=== PATIENT | male | born 1985 ===

== ENCOUNTER 2021-02-18 08:00 | Outpatient (RCR) | payer OTHER, SELFPAY ==
[2021-02-18 09:05] LABS: Abs Immature Grans 0.02 10^3/uL (0.0-0.06); Absolute Basophil Count 0.04 10^3/uL (0.0-0.2); Absolute Eosinophil Count 0.27 10^3/uL (0.0-0.7); Absolute Lymphocyte Count 1.11 10^3/uL (1.2-3.4); Absolute Monocyte Count 1.34 10^3/uL (0.1-0.8); Absolute Neutrophil Count 3.56 10^3/uL (1.2-6.7); Basophils % 0.6; Eosinophils % 4.3; HCT 26.6 % (40.0-50.0); HGB 8.3 g/dL (13.5-17.5); Immature Grans % 0.3; Lymphocytes % 17.5; MCH 26.9 pg (27.0-33.0); MCHC 31.2 % (32.0-36.0); MCV 86.1 fL (80-95); MPV 10.1 fL (8.0-11.0); Monocytes % 21.1; Neutrophils % 56.2; Nucleated RBC 0 %; Platelet Count 410 10^3/uL (130-400); RBC 3.09 10^6/uL (4.36-5.78); RDW 18.7 % (11.8-14.1); RDW-SD 58.7 fL; WBC 6.34 10^3/uL (4.4-10.8)
[2021-02-18 09:18] LABS: Anisocytosis 2+; Diff Comment Diff Reviewed; Hypochromasia 1+; Polychromasia Present
[2021-02-18 09:19] LABS: Poikilocytes 1+
[2021-02-18 09:21] LABS: ALT 67 U/L (16-63); AST 36 U/L (15-37); Alkaline Phosphatase 193 U/L (46-116); Anion Gap 5.4 mmol/L (3-11); BUN 7 mg/dL (7-18); Bilirubin, Total 0.2 mg/dL (0.2-1.0); CO2 28.6 mmol/L (21.0-32.0); CREATININE 0.6 mg/dL (0.70-1.30); Calcium 8.3 mg/dL (8.5-10.1); Chloride 100 mmol/L (98-107); Glucose 220 mg/dL (74-106); Potassium 4.8 mmol/L (3.5-5.1); Sodium 134 mmol/L (136-145); Total Protein 7.1 g/dL (6.4-8.2)
== END 2021-02-18 23:59 | disposition home or self-care (01) ==
LOC: INF 08:00
PROVIDERS: PCP Family Medicine; Visit Provider Internal Medicine Medical Oncology
DX: Z45.2 Encounter for adjustment and management of vascular access device (principal); C44.500 Unspecified malignant neoplasm of anal skin
CPT/HCPCS: 36569; 36592; 80053; 85025

== ENCOUNTER 2021-03-15 00:50 | Outpatient (RCR) | payer OTHER, SELFPAY ==
[2021-02-22 08:02] LABS: Abs Immature Grans 0.03 10^3/uL (0.0-0.06); Absolute Basophil Count 0.04 10^3/uL (0.0-0.2); Absolute Eosinophil Count 0.26 10^3/uL (0.0-0.7); Absolute Monocyte Count 0.57 10^3/uL (0.1-0.8); Absolute Neutrophil Count 4.86 10^3/uL (1.2-6.7); Basophils % 0.6; Eosinophils % 3.9; HCT 30.8 % (40.0-50.0); HGB 9.5 g/dL (13.5-17.5); Immature Grans % 0.5; Lymphocytes % 13.5; MCH 26.5 pg (27.0-33.0); MCHC 30.8 % (32.0-36.0); MCV 85.8 fL (80-95); MPV 9.9 fL (8.0-11.0); Monocytes % 8.6; Neutrophils % 72.9; Nucleated RBC 0 %; Platelet Count 537 10^3/uL (130-400); RBC 3.59 10^6/uL (4.36-5.78); RDW 18.1 % (11.8-14.1); RDW-SD 57.1 fL; WBC 6.66 10^3/uL (4.4-10.8)
[2021-02-22 08:18] LABS: ALT 135 U/L (16-63); AST 201 U/L (15-37); Albumin 3.5 g/dL (3.4-5.0); Alkaline Phosphatase 222 U/L (46-116); Anion Gap 7.2 mmol/L (3-11); BUN 11 mg/dL (7-18); Bilirubin, Total 0.4 mg/dL (0.2-1.0); CO2 28.8 mmol/L (21.0-32.0); CREATININE 0.7 mg/dL (0.70-1.30); Calcium 8.6 mg/dL (8.5-10.1); Chloride 100 mmol/L (98-107); Glucose 61 mg/dL (74-106); Potassium 4.3 mmol/L (3.5-5.1); Sodium 136 mmol/L (136-145); Total Protein 8.1 g/dL (6.4-8.2)
[2021-03-01 07:32] LABS: Abs Immature Grans 0.01 10^3/uL (0.0-0.06); Absolute Basophil Count 0.03 10^3/uL (0.0-0.2); Absolute Eosinophil Count 0.15 10^3/uL (0.0-0.7); Absolute Monocyte Count 0.65 10^3/uL (0.1-0.8); Absolute Neutrophil Count 2.49 10^3/uL (1.2-6.7); Basophils % 0.7; Eosinophils % 3.6; HCT 29.3 % (40.0-50.0); HGB 9.1 g/dL (13.5-17.5); Immature Grans % 0.2; Lymphocytes % 19.4; MCH 27.7 pg (27.0-33.0); MCHC 31.1 % (32.0-36.0); MCV 89.1 fL (80-95); MPV 9.2 fL (8.0-11.0); Monocytes % 15.7; Neutrophils % 60.4; Nucleated RBC 0 %; Platelet Count 397 10^3/uL (130-400); RBC 3.29 10^6/uL (4.36-5.78); RDW 19.1 % (11.8-14.1); RDW-SD 58.8 fL; WBC 4.13 10^3/uL (4.4-10.8)
[2021-03-01 07:44] LABS: ALT 40 U/L (16-63); AST 32 U/L (15-37); Albumin 3.2 g/dL (3.4-5.0); Alkaline Phosphatase 152 U/L (46-116); Anion Gap 6.3 mmol/L (3-11); BUN 10 mg/dL (7-18); Bilirubin, Total 0.2 mg/dL (0.2-1.0); CO2 27.7 mmol/L (21.0-32.0); CREATININE 0.7 mg/dL (0.70-1.30); Calcium 8.1 mg/dL (8.5-10.1); Chloride 100 mmol/L (98-107); Glucose 118 mg/dL (74-106); Potassium 3.9 mmol/L (3.5-5.1); Sodium 134 mmol/L (136-145); Total Protein 7.1 g/dL (6.4-8.2)
[2021-03-08 08:23] LABS: ALT 30 U/L (16-63); AST 20 U/L (15-37); Albumin 3.3 g/dL (3.4-5.0); Alkaline Phosphatase 128 U/L (46-116); Anion Gap 8.8 mmol/L (3-11); BUN 8 mg/dL (7-18); Bilirubin, Total 0.2 mg/dL (0.2-1.0); CO2 26.2 mmol/L (21.0-32.0); CREATININE 0.7 mg/dL (0.70-1.30); Calcium 8.4 mg/dL (8.5-10.1); Chloride 101 mmol/L (98-107); Glucose 122 mg/dL (74-106); Potassium 3.9 mmol/L (3.5-5.1); Sodium 136 mmol/L (136-145); Total Protein 7.6 g/dL (6.4-8.2)
[2021-03-09 09:39] LABS: Abs Immature Grans 0.01 10^3/uL (0.0-0.06); Absolute Basophil Count 0.04 10^3/uL (0.0-0.2); Absolute Eosinophil Count 0.17 10^3/uL (0.0-0.7); Absolute Lymphocyte Count 0.47 10^3/uL (1.2-3.4); Absolute Monocyte Count 0.85 10^3/uL (0.1-0.8); Absolute Neutrophil Count 2.22 10^3/uL (1.2-6.7); Basophils % 1.1; Eosinophils % 4.5; HCT 30.3 % (40.0-50.0); HGB 9.3 g/dL (13.5-17.5); Immature Grans % 0.3; Lymphocytes % 12.5; MCH 27.4 pg (27.0-33.0); MCHC 30.7 % (32.0-36.0); MCV 89.1 fL (80-95); MPV 9.3 fL (8.0-11.0); Monocytes % 22.6; Nucleated RBC 0 %; Platelet Count 252 10^3/uL (130-400); RDW 20.7 % (11.8-14.1); RDW-SD 62.9 fL; WBC 3.76 10^3/uL (4.4-10.8)
[2021-03-09 10:01] LABS: Anisocytosis 2+; Diff Comment Diff Reviewed
[2021-03-15 07:36] LABS: Abs Immature Grans 0.02 10^3/uL (0.0-0.06); Absolute Basophil Count 0.05 10^3/uL (0.0-0.2); Absolute Eosinophil Count 0.24 10^3/uL (0.0-0.7); Absolute Lymphocyte Count 0.51 10^3/uL (1.2-3.4); Absolute Monocyte Count 0.94 10^3/uL (0.1-0.8); Absolute Neutrophil Count 4.59 10^3/uL (1.2-6.7); Basophils % 0.8; Eosinophils % 3.8; HCT 32.1 % (40.0-50.0); HGB 10.3 g/dL (13.5-17.5); Immature Grans % 0.3; MCH 28.5 pg (27.0-33.0); MCHC 32.1 % (32.0-36.0); MCV 88.7 fL (80-95); MPV 9.3 fL (8.0-11.0); Monocytes % 14.8; Neutrophils % 72.3; Nucleated RBC 0 %; Platelet Count 255 10^3/uL (130-400); RBC 3.62 10^6/uL (4.36-5.78); RDW 21.5 % (11.8-14.1); RDW-SD 64.6 fL; WBC 6.35 10^3/uL (4.4-10.8)
[2021-03-15 07:53] LABS: ALT 60 U/L (16-63); AST 51 U/L (15-37); Albumin 3.3 g/dL (3.4-5.0); Alkaline Phosphatase 134 U/L (46-116); Anion Gap 8.7 mmol/L (3-11); BUN 9 mg/dL (7-18); Bilirubin, Total 0.2 mg/dL (0.2-1.0); CO2 27.3 mmol/L (21.0-32.0); CREATININE 0.7 mg/dL (0.70-1.30); Chloride 98 mmol/L (98-107); Glucose 230 mg/dL (74-106); Potassium 4.4 mmol/L (3.5-5.1); Sodium 134 mmol/L (136-145); Total Protein 7.3 g/dL (6.4-8.2)
[2021-03-15 07:54] LABS: Anisocytosis 2+; Diff Comment Diff Reviewed
== END 2021-03-21 23:59 | disposition home or self-care (01) ==
LOC: INF 00:50
PROVIDERS: Internal Medicine Medical Oncology; PCP Family Medicine; Visit Provider Radiology Radiation Oncology
DX: C44.500 Unspecified malignant neoplasm of anal skin (principal)
CPT/HCPCS: 36415; 80053; 85025

== ENCOUNTER 2021-03-29 00:43 | Outpatient (RCR) | payer OTHER, SELFPAY ==
[2021-03-22 07:48] LABS: Abs Immature Grans 0.03 10^3/uL (0.0-0.06); Absolute Basophil Count 0.03 10^3/uL (0.0-0.2); Absolute Eosinophil Count 0.48 10^3/uL (0.0-0.7); Absolute Lymphocyte Count 0.67 10^3/uL (1.2-3.4); Absolute Monocyte Count 0.89 10^3/uL (0.1-0.8); Absolute Neutrophil Count 4.31 10^3/uL (1.2-6.7); Basophils % 0.5; Eosinophils % 7.5; HCT 35.7 % (40.0-50.0); HGB 11.4 g/dL (13.5-17.5); Immature Grans % 0.5; Lymphocytes % 10.5; MCH 28.5 pg (27.0-33.0); MCHC 31.9 % (32.0-36.0); MCV 89.3 fL (80-95); MPV 9.8 fL (8.0-11.0); Monocytes % 13.9; Neutrophils % 67.1; Nucleated RBC 0 %; Platelet Count 302 10^3/uL (130-400); RDW 22.7 % (11.8-14.1); RDW-SD 69.3 fL; WBC 6.41 10^3/uL (4.4-10.8)
[2021-03-22 08:09] LABS: ALT 35 U/L (16-63); AST 29 U/L (15-37); Albumin 3.5 g/dL (3.4-5.0); Alkaline Phosphatase 124 U/L (46-116); Anion Gap 8.8 mmol/L (3-11); BUN 11 mg/dL (7-18); Bilirubin, Total 0.3 mg/dL (0.2-1.0); CO2 27.2 mmol/L (21.0-32.0); CREATININE 0.7 mg/dL (0.70-1.30); Calcium 8.6 mg/dL (8.5-10.1); Chloride 99 mmol/L (98-107); Glucose 141 mg/dL (74-106); Potassium 4.3 mmol/L (3.5-5.1); Sodium 135 mmol/L (136-145); Total Protein 7.8 g/dL (6.4-8.2)
== END 2021-04-20 23:59 | disposition home or self-care (01) ==
LOC: INF 00:43
PROVIDERS: Internal Medicine Medical Oncology; PCP Family Medicine; Visit Provider Radiology Radiation Oncology
DX: C44.500 Unspecified malignant neoplasm of anal skin (principal)
CPT/HCPCS: 36415; 80053; 85025